=== PATIENT | male | born 1955 | race Caucasian/White ===

== ENCOUNTER → 2024-09-19 20:17 | Outpatient (REF) | payer OTHER, SELFPAY | LOC: MRI 3T 20:17 | PROVIDERS: ATTENDING PHYSICIAN Physician Assistant; FAMILY PHYSICIAN Internal Medicine | DX: H90.42 Sensorineural hearing loss, unilateral, left ear, with unrestricted hearing on the contralateral side (principal) | CPT/HCPCS: 70553; A9575 ==

== ENCOUNTER → 2024-09-27 19:59 | Outpatient (REF) | payer OTHER, SELFPAY | LOC: MRI 3T 19:59 | PROVIDERS: ATTENDING PHYSICIAN Otolaryngology; FAMILY PHYSICIAN Internal Medicine | DX: G08 Intracranial and intraspinal phlebitis and thrombophlebitis (principal) | CPT/HCPCS: 70546; A9585 ==